=== PATIENT | female | born 1970 | race Two or more races ===

== ENCOUNTER 2017-12-30 19:40 | Emergency (ER) | payer OTHER ==
[~2017-12-30] VITALS: Ht 167.6 cm; Wt 98.4 kg
--- NOTE | 2017-12-30 19:54 | NUR ---
Dr. Palomo at bedside for MSE.
[2017-12-30] MEDS ORDERED: TRAZADONE (19:58)
[2017-12-30] MEDS ORDERED: LAMICTAL (19:58)
[2017-12-30] MEDS ORDERED: IBUPROFEN 800 MG TABLET ONE (19:58)
[2017-12-30] MEDS ORDERED: IBUPROFEN 800 MG TABLET PO ONE (20:00)
[2017-12-30] MEDS: LAMOTRIGINE 200 MG TABLET PO SCH ×2 (20:03→20:06)
--- NOTE | 2017-12-30 20:10 | NUR ---
[employer] at bedside to interview patient.
--- NOTE | 2017-12-30 21:00 | NUR ---
Patient discharged to home in stable conditon. Written and verbal after care instructions given. Patient verbalizes understanding of instructions. Pt ambulated out of ER with steady gait, no acute signs of distress, VSS, all belongings taken. Patient provided with a taxi voucher, awaiting pickup in waiting room.
[2017-12-30 21:01] VITALS: BP 155/83
== END 2017-12-30 21:02 | disposition home or self-care (01) ==
LOC: ER 19:43
DX: S09.90XA Unspecified injury of head, initial encounter (principal); Y04.0XXA Assault by unarmed brawl or fight, initial encounter; Y93.89 Activity, other specified; Y92.89 Other specified places as the place of occurrence of the external cause; Y99.8 Other external cause status
CPT/HCPCS: A4663

== ENCOUNTER 2018-04-06 15:15 | Inpatient (IN) | payer OTHER ==
[~2018-04-06] VITALS: Ht 167.6 cm; Wt 108.9 kg
[~2018-04-06 15:15] MED LIST: LAMICTAL; TRAZADONE
[2018-04-06 20:00] VITALS: BP 119/58
[2018-04-06] MEDS ORDERED: LAMO200T2 PO (21:12)
[2018-04-06] MEDS ORDERED: ATEN25TA PO (21:12)
[2018-04-06] MEDS ORDERED: TRAZ300T2 PO (21:12)
[2018-04-06] MEDS ORDERED: MIRALAX 17 GM POWD.PACK PO PRN (21:15)
[2018-04-06] MEDS ORDERED: LOPERAMIDE HCL 2 MG CAPSULE PO PRN ×2 (21:15)
[2018-04-06] MEDS ORDERED: LORAZEPAM 1 MG TABLET PO PRN (21:15)
[2018-04-06] MEDS ORDERED: MAG HYDROX/AL HYDROX/SIMETH 30 ML LIQUID UDC PO PRN (21:15)
[2018-04-06] MEDS ORDERED: ONDANSETRON 4 MG/2 ML VIAL IM PRN (21:15)
[2018-04-06] MEDS ORDERED: MAGNESIUM HYDROXIDE 30 ML LIQUID UDC PO PRN (21:15)
[2018-04-06] MEDS ORDERED: diphenhydrAMINE 50 MG CAPSULE PO PRN (21:15)
[2018-04-06] MEDS ORDERED: ONDANSETRON ODT 4 MG TAB.RAPDIS SL PRN (21:15)
[2018-04-06] MEDS ORDERED: LORAZEPAM 2 MG/1 ML VIAL IM PRN (21:15)
[2018-04-06] MEDS ORDERED: TRAZODONE 100 MG TABLET PO ONE (21:30)
[2018-04-06 21:35] LABS: *URINE HCG, QUAL NEGATIVE (NEGATIVE)
[2018-04-06 21:40] LABS: BASOPHILS # (AUTO) 0.1 K/uL (0.0-8.0); BASOPHILS % (AUTO) 2.4 % (0.0-2.0); EOSINOPHILS % (AUTO) 0.7 % (0.0-7.0); HEMATOCRIT 27.5 % (31.2-41.9); LYMPHOCYTES # (AUTO) 1.6 K/uL (20.0-40.0); LYMPHOCYTES % (AUTO) 52.2 % (20.5-51.5); MEAN CORPUSCULAR HEMOGLOBIN 27.4 uug (24.7-32.8); MEAN CORPUSCULAR HGB CONC 33 g/dL (32.3-35.6); MEAN CORPUSCULAR VOLUME 83.8 fL (75.5-95.3); MONOCYTES # (AUTO) 0.3 K/uL (2.0-10.0); MONOCYTES % (AUTO) 8.8 % (0.0-11.0); NEUTROPHILS # (AUTO) 1.1 K/uL (1.8-8.9); NEUTROPHILS % (AUTO) 35.9 % (38.5-71.5); PLATELET COUNT (AUTO) 256 K/uL (179-408); RED BLOOD CELL COUNT(AUTO) 3.28 MIL/uL (3.63-4.92); WHITE BLOOD COUNT (AUTO) 3.1 K/uL (3.8-11.8)
[2018-04-06] MEDS: ACETAMINOPHEN 325 MG TABLET PO PRN (21:40)
[2018-04-06 21:51] LABS: BILIRUBIN,TOTAL 0.2 mg/dL (0.2-1.0); CREATININE 0.7 mg/dL (0.6-1.3); MAGNESIUM 2.1 mg/dL (1.8-2.4); POTASSIUM 3.5 mmol/L (3.5-5.1); TOTAL PROTEIN, SERUM 7.2 g/dL (6.4-8.2)
[2018-04-06] MEDS: MULTIVITAMINS,THERAPEUTIC TABLET PO SCH (22:00)
[2018-04-06] MEDS ORDERED: THIAMINE HCL 200 MG/2 ML VIAL IM ONE (22:00)
[2018-04-06] MEDS: FOLIC ACID 1 MG TABLET PO SCH (22:00)
[2018-04-06 22:02] LABS: THYROID STIMULATING HORMONE 1.752 mIU/mL (0.358-3.740)
[2018-04-06 23:01] LABS: *AMPHETAMINE, URINE NEGATIVE (NEGATIVE); *BARBITURATE, URINE NEGATIVE (NEGATIVE); *CANNABINOID, URINE NEGATIVE (NEGATIVE); *COCCAINE, URINE NEGATIVE (NEGATIVE); *OPIATE, URINE NEGATIVE (NEGATIVE); *PHENCYCLIDINE SCREEN,URINE NEGATIVE (NEGATIVE)
[2018-04-07] MEDS: LORAZEPAM 1 MG TABLET PO PRN ×2 (05:36→08:23)
[2018-04-07 08:00] VITALS: BP 156/76
[2018-04-07] MEDS: FOLIC ACID 1 MG TABLET PO SCH (08:23)
[2018-04-07] MEDS: THIAMINE HCL 100 MG TABLET PO SCH (08:24)
[2018-04-07] MEDS: MULTIVITAMINS,THERAPEUTIC TABLET PO SCH (08:24)
[2018-04-07] MEDS: ACETAMINOPHEN 325 MG TABLET PO PRN (08:24)
[2018-04-07] MEDS ORDERED: TUBERCULIN,PURIF.PROT.DERIV. 5 TU/0.1 ML TEST ID ONE (09:00)
[2018-04-07] MEDS: LAMOTRIGINE 200 MG TABLET PO SCH (11:14)
[2018-04-07 12:00] VITALS: BP 169/95
[2018-04-07] MEDS: CLONIDINE HCL 0.1 MG TABLET PO PRN ×2 (12:18→20:58)
[2018-04-07] MEDS: IBUPROFEN 600 MG TABLET PO PRN (12:18)
[2018-04-07 13:00] VITALS: BP 158/89
[2018-04-07] MEDS ORDERED: 5 DAY TAPER OF LORAZEPAM -SERENITY PROTOCOL PO PRN (13:30)
[2018-04-07] MEDS: LORAZEPAM 1 MG TABLET PO SCH ×2 (14:13→20:58)
[2018-04-07] MEDS: ATENOLOL 25 MG TABLET PO SCH (15:20)
[2018-04-07 16:00] VITALS: BP 152/79
[2018-04-07 20:00] VITALS: BP 151/66
[2018-04-07] MEDS: TRAZODONE 100 MG TABLET PO SCH (20:58)
[2018-04-08] VITALS (7 sets, daily range): BP systolic 130–188; BP diastolic 63–102
[2018-04-08] MEDS: LAMOTRIGINE 200 MG TABLET PO SCH (08:41)
[2018-04-08] MEDS: THIAMINE HCL 100 MG TABLET PO SCH (08:41)
[2018-04-08] MEDS: CLONIDINE HCL 0.1 MG TABLET PO PRN ×2 (08:41→16:57)
[2018-04-08] MEDS: LORAZEPAM 1 MG TABLET PO SCH ×4 (08:41→21:54)
[2018-04-08] MEDS: ATENOLOL 25 MG TABLET PO SCH (08:42)
[2018-04-08] MEDS: FOLIC ACID 1 MG TABLET PO SCH (08:42)
[2018-04-08] MEDS: MULTIVITAMINS,THERAPEUTIC TABLET PO SCH (08:42)
[2018-04-08 08:45] LABS: IRON, SERUM 66 ug/dL (50-175)
[2018-04-08 09:00] LABS: LYMPHOCYTES # (AUTO) 1.5 K/uL (20.0-40.0); MEAN CORPUSCULAR VOLUME 85.2 fL (75.5-95.3); MONOCYTES # (AUTO) 0.4 K/uL (2.0-10.0)
[2018-04-08 09:34] LABS: BASOPHILS % (AUTO) 0.8 % (0.0-2.0); EOSINOPHILS % (AUTO) 1.1 % (0.0-7.0); LYMPHOCYTES % (AUTO) 41.2 % (20.5-51.5); MEAN CORPUSCULAR HEMOGLOBIN 27.5 uug (24.7-32.8); MEAN CORPUSCULAR HGB CONC 32 g/dL (32.3-35.6); MONOCYTES % (AUTO) 10.2 % (0.0-11.0); NEUTROPHILS # (AUTO) 1.7 K/uL (1.8-8.9); NEUTROPHILS % (AUTO) 46.7 % (38.5-71.5); PLATELET COUNT (AUTO) 308 K/uL (179-408); RED BLOOD CELL COUNT(AUTO) 3.91 MIL/uL (3.63-4.92); WHITE BLOOD COUNT (AUTO) 3.7 K/uL (3.8-11.8)
[2018-04-08 09:35] LABS: HEMATOCRIT 33.3 % (31.2-41.9); HEMOGLOBIN 10.7 g/dL (10.9-14.3)
[2018-04-08 12:07] LABS: HEPATITIS B SURFACE AG Negative (Negative)
[2018-04-08] MEDS: ACETAMINOPHEN 325 MG TABLET PO PRN (16:57)
[2018-04-08] MEDS: HYDROXYZINE PAMOATE 25 MG CAPSULE PO PRN (21:54)
[2018-04-08] MEDS: TRAZODONE 100 MG TABLET PO SCH (21:54)
[2018-04-09] VITALS: BP 138/71
[2018-04-09 08:00] VITALS: BP 142/73
[2018-04-09] MEDS: IBUPROFEN 600 MG TABLET PO PRN (08:52)
[2018-04-09] MEDS: LAMOTRIGINE 200 MG TABLET PO SCH (08:53)
[2018-04-09] MEDS: THIAMINE HCL 100 MG TABLET PO SCH (08:53)
[2018-04-09] MEDS: MULTIVITAMINS,THERAPEUTIC TABLET PO SCH (08:53)
[2018-04-09] MEDS: LORAZEPAM 1 MG TABLET PO SCH ×3 (08:53→20:37)
[2018-04-09] MEDS: FOLIC ACID 1 MG TABLET PO SCH (08:53)
[2018-04-09] MEDS: HYDROXYZINE PAMOATE 25 MG CAPSULE PO PRN (08:53)
[2018-04-09] MEDS: ATENOLOL 25 MG TABLET PO SCH (08:53)
[2018-04-09] MEDS: CLONIDINE HCL 0.1 MG TABLET PO PRN (08:54)
[2018-04-09 12:00] VITALS: BP 131/82
[2018-04-09 16:00] VITALS: BP 131/94
[2018-04-09 20:00] VITALS: BP 129/62
[2018-04-09] MEDS: TRAZODONE 100 MG TABLET PO SCH (20:37)
[2018-04-10] MEDS: FOLIC ACID 1 MG TABLET PO SCH (08:30)
[2018-04-10] MEDS: MULTIVITAMINS,THERAPEUTIC TABLET PO SCH (08:30)
[2018-04-10] MEDS: THIAMINE HCL 100 MG TABLET PO SCH (08:31)
[2018-04-10] MEDS: LORAZEPAM 1 MG TABLET PO SCH ×2 (08:31→20:47)
[2018-04-10] MEDS: LAMOTRIGINE 200 MG TABLET PO SCH (08:31)
[2018-04-10] MEDS: ATENOLOL 25 MG TABLET PO SCH (08:31)
[2018-04-10 09:42] VITALS: BP 161/69
[2018-04-10 13:03] VITALS: BP 156/99
[2018-04-10] MEDS: CLONIDINE HCL 0.1 MG TABLET PO PRN ×2 (16:52→20:47)
[2018-04-10 16:56] VITALS: BP 176/98
[2018-04-10] MEDS: ACETAMINOPHEN 325 MG TABLET PO PRN (17:52)
[2018-04-10 20:00] VITALS: BP 160/70
[2018-04-10] MEDS: IBUPROFEN 600 MG TABLET PO PRN (20:46)
[2018-04-10] MEDS: TRAZODONE 100 MG TABLET PO SCH (20:47)
[2018-04-11 08:00] VITALS: BP 145/87
[2018-04-11] MEDS: LAMOTRIGINE 200 MG TABLET PO SCH (08:34)
[2018-04-11] MEDS: FOLIC ACID 1 MG TABLET PO SCH (08:34)
[2018-04-11] MEDS: MULTIVITAMINS,THERAPEUTIC TABLET PO SCH (08:34)
[2018-04-11] MEDS: ATENOLOL 25 MG TABLET PO SCH (08:34)
[2018-04-11] MEDS: THIAMINE HCL 100 MG TABLET PO SCH (08:34)
[2018-04-11] MEDS ORDERED: LORAZEPAM 1 MG TABLET PO SCH (09:00)
[2018-04-11 12:00] VITALS: BP 148/65
[2018-04-11] MEDS ORDERED: LAMO200T2 PO (13:21)
[2018-04-11] MEDS ORDERED: ATEN25TA PO (13:21)
[2018-04-11] MEDS ORDERED: TRAZ300T2 PO (13:21)
[2018-04-11] MEDS ORDERED: HYDR-3895 PO (13:21)
[2018-04-11] MEDS ORDERED: MULT-24 PO (13:21)
[2018-04-11 16:00] VITALS: BP 143/86
[2018-04-11 20:00] VITALS: BP 149/81
[2018-04-11 20:26] LABS: *BILIRUBIN,URIN NEGATIVE (NEGATIVE); *BLOOD, URINE NEGATIVE (NEGATIVE); *CLARITY,URINE SLIGHTLY CLOUDY (CLEAR); *COLOR,URINE YELLOW (YELLOW); *KETONES,URINE NEGATIVE (NEGATIVE); *PROTEIN,URINE NEGATIVE (NEGATIVE); *UROBILINOGEN,URINE 0.2 E.U./dl (NORMAL); LEUKOCYTE ESTERASE ,URINE NEGATIVE (NEGATIVE); NITRITE, URINE NEGATIVE (NEGATIVE); UGLUCOSE NEGATIVE (NEGATIVE)
[2018-04-11] MEDS: IBUPROFEN 600 MG TABLET PO PRN (20:35)
[2018-04-11] MEDS: TRAZODONE 100 MG TABLET PO SCH (20:36)
[2018-04-11] MEDS: CLONIDINE HCL 0.1 MG TABLET PO PRN (20:36)
[2018-04-12 08:07] VITALS: BP_SYST 149; BP_DIAS 81; BP_DIAS 87
[2018-04-12] MEDS: LAMOTRIGINE 200 MG TABLET PO SCH (08:35)
[2018-04-12] MEDS: THIAMINE HCL 100 MG TABLET PO SCH (08:35)
[2018-04-12] MEDS: MULTIVITAMINS,THERAPEUTIC TABLET PO SCH (08:35)
[2018-04-12] MEDS: FOLIC ACID 1 MG TABLET PO SCH (08:35)
[2018-04-12 08:36] VITALS: BP 149/81
[2018-04-12] MEDS: ATENOLOL 25 MG TABLET PO SCH (08:36)
== END 2018-04-12 10:38 | DRG 772 ==
LOC: SRC 17:42
PROVIDERS: ADMIT Family Medicine Addiction Medicine; ATTEND Family Medicine Addiction Medicine
PROC: HZ2ZZZZ Detoxification Services for Substance Abuse Treatment (ICD-10-PCS; principal; 2018-04-06)
PROC: HZ31ZZZ Individual Counseling for Substance Abuse Treatment, Behavioral (ICD-10-PCS; 2018-04-08)
PROC: HZ41ZZZ Group Counseling for Substance Abuse Treatment, Behavioral (ICD-10-PCS; 2018-04-08)
PROC: HZ59ZZZ Individual Psychotherapy for Substance Abuse Treatment, Supportive (ICD-10-PCS; 2018-04-08)
DX: F10.230 Alcohol dependence with withdrawal, uncomplicated (principal); F31.30 Bipolar disorder, current episode depressed, mild or moderate severity, unspecified; D64.9 Anemia, unspecified; F17.210 Nicotine dependence, cigarettes, uncomplicated; Y90.8 Blood alcohol level of 240 mg/100 ml or more; Z81.8 Family history of other mental and behavioral disorders; Z98.84 Bariatric surgery status; F41.0 Panic disorder [episodic paroxysmal anxiety]; G47.00 Insomnia, unspecified; Z79.899 Other long term (current) drug therapy; F41.1 Generalized anxiety disorder; I10 Essential (primary) hypertension
CPT/HCPCS: 36415; 70030-TC; 80307; 80346; 83550; 83690; 83735; 84443; 84703; 85025; 86592; 86705; 86803; 87086; 87340; 87491; 87806; G0480

== ENCOUNTER 2018-04-06 15:25 | Emergency (ER) | payer OTHER ==
[~2018-04-06] VITALS: Ht 167.6 cm; Wt 104.3 kg
--- NOTE | 2018-04-06 16:04 | NUR ---
Patient pulled off her spo2 probe. Patient is alert, awake & wanting to call her daughter. nutrition representative Sony is calling her [email or web address].
--- NOTE | 2018-04-06 16:41 | NUR ---
Patient is AOx3, still with slurring of speech. Patient consents to blood draw. Bedpan offered.
--- NOTE | 2018-04-06 17:14 | NUR ---
Patient is talkative with the [facility] staff. Bedpan removed earlier. No urine seen.
--- NOTE | 2018-04-06 17:24 | NUR ---
Patient ambulated to bathroom with slow steady gait. Patient consents to be [facility] Patient is medically cleared by ER doctor Josh.
--- NOTE | 2018-04-06 17:27 | NUR ---
Patient said that she can't wait for the [facility] staff to pick her up from our ER department to start her rehab treatment. "I've been waiting for 2 hours to start my rehab. Call my daughter." per patient's verbalization. Patient ambulated out of ER with brisk steady gait. [facility] was called for assistance. Patient came back to our ER department w/o assistance. [facility] was called OFF.
--- NOTE | 2018-04-06 17:32 | NUR ---
Patient is AOx4, still consenting verbally to rehab treatment. [facility] staff came and escorted patient back to the rehab unit. Medically cleared by MD for rehab treatment. Patient ambulated unassisted to the rehab unit/intake office.
[2018-04-06] MEDS ORDERED: TRAZ300T2 PO (21:12)
[2018-04-06] MEDS ORDERED: ATEN25TA PO (21:12)
[2018-04-06] MEDS ORDERED: LAMO200T2 PO (21:12)
== END 2018-04-06 17:38 | disposition home or self-care (01) ==
LOC: ER 15:25
DX: F10.129 Alcohol abuse with intoxication, unspecified (principal); Z79.899 Other long term (current) drug therapy; Y90.8 Blood alcohol level of 240 mg/100 ml or more
CPT/HCPCS: 36415; 99283; G0480; A4663

== ENCOUNTER 2018-10-02 18:23 | Emergency (ER) | payer OTHER ==
[~2018-10-02] VITALS: Ht 170.2 cm; Wt 102.1 kg
[~2018-10-02 18:23] MED LIST changes: +ATEN25TA PO; +HYDR-3895 PO; -LAMICTAL; +LAMO200T2 PO; +MULT-24 PO; +TRAZ300T2 PO; -TRAZADONE
--- NOTE | 2018-10-02 18:38 | NUR ---
PT RECEIVED AMBULATORY, CO DIZZINESS AND HEADACHE. ALERT AND ORIENTED. NOTED R FRONTAL LACERATION ON HEAD WITH 14 STITCHES APPROX 4-5CM IN LENGTH, PER PATIENT:UNKNOWN SOURCE/CAUSE BUT STATES IT WAS 5 DAYS AGO. MD AT BEDSIDE FOR HISTORY AND PHYSICAL. MONITORED ACCORDINGLY.
[2018-10-02 18:58] LABS: BASOPHILS # (AUTO) 0.1 K/uL (0.0-8.0); EOSINOPHILS % (AUTO) 0.2 % (0.0-7.0); HEMATOCRIT 33.6 % (31.2-41.9); HEMOGLOBIN 10.8 g/dL (10.9-14.3); LYMPHOCYTES # (AUTO) 2.1 K/uL (20.0-40.0); LYMPHOCYTES % (AUTO) 39.4 % (20.5-51.5); MEAN CORPUSCULAR HEMOGLOBIN 26.5 uug (24.7-32.8); MEAN CORPUSCULAR HGB CONC 32 g/dL (32.3-35.6); MEAN CORPUSCULAR VOLUME 82.3 fL (75.5-95.3); MONOCYTES # (AUTO) 0.3 K/uL (2.0-10.0); MONOCYTES % (AUTO) 4.9 % (0.0-11.0); NEUTROPHILS # (AUTO) 2.9 K/uL (1.8-8.9); NEUTROPHILS % (AUTO) 54.5 % (38.5-71.5); PLATELET COUNT (AUTO) 283 K/uL (179-408); RED BLOOD CELL COUNT(AUTO) 4.08 MIL/uL (3.63-4.92); WHITE BLOOD COUNT (AUTO) 5.4 K/uL (3.8-11.8)
--- NOTE | 2018-10-02 19:02 | NUR ---
TAKEN FOR CT BY KIANNA. STABLE. NOTICED PATIENT IS MORE ANXIOUS AND WOULD STARE BLANKLY FOR 15SECONDS. REORIENTED, ALERT AND ORIENTEDX4. STROKE ASSESSMENT DONE
--- NOTE | 2018-10-02 19:14 | NUR ---
Received report from [facility], assumed care of pt., pt. back from CT,
[2018-10-02 19:24] LABS: CREATININE 0.6 mg/dL (0.6-1.3); POTASSIUM 3.6 mmol/L (3.5-5.1)
[2018-10-02] MEDS ORDERED: MORPHINE SULFATE 2 MG/1 ML DISP.SYRIN ONE (20:25)
[2018-10-02] MEDS ORDERED: MORPHINE SULFATE 4 MG/1 ML DISP.SYRIN ONE (20:25)
[2018-10-02] MEDS ORDERED: MORPHINE SULFATE 4 MG/1 ML DISP.SYRIN IM ONE (20:30)
--- NOTE | 2018-10-02 20:30 | NUR ---
Patient discharged to home in stable conditon. Written and verbal after care instructions given. Patient verbalizes understanding of instructions. Pt. d/c w/ prescription per MD order, d/c papers signed, all belongings w/ pt., ID band removed, ambulated off unit w/ steady gait, NAD
== END 2018-10-02 20:33 | disposition home or self-care (01) ==
LOC: ER 18:23
DX: R51 Headache (principal); R42 Dizziness and giddiness; Z59.0 Homelessness; Z79.899 Other long term (current) drug therapy
CPT/HCPCS: 36415; 70450; 80048; 82962; 85025; 93005; 96372; 99284; J2270 ×2; A4663